=== PATIENT | male | born 1970 | race Hispanic/Latino ===

== ENCOUNTER 2024-09-26 17:03 | Emergency (ER) | payer SELFPAY ==
[2024-09-26] MEDS ORDERED: LORazepam 2 MG/ML SYR.(CARPUJECT) ONE (17:23)
[2024-09-26 17:35] LABS: #Basophils 0.03 10x3/uL (0.0-0.2); %Basophils 0.4 % (0.0-1.0); %Eosinophils 0.9 % (0.0-10.0); %Lymphocytes 21.1 % (21.0-51.0); %Monocytes 8.4 % (0.0-10.0); Hemoglobin 12.8 g/dL (14.0-18.0); Mean Corpuscular HGB CONC 34.6 g/dL (32.0-36.0); Mean Corpuscular Hemoglobin 28.8 pg (27.0-31.0); Mean Corpuscular Volume 83.1 fL (78.0-98.0); Mean Platelet Volume 9.8 fL (7.4-10.4); Platelet Count 256 10x3/uL (130-400); RBC Distribution Width 14.2 % (11.5-14.5); Red Blood Cell (RBC) Count 4.45 mill/uL (4.70-6.10)
[2024-09-26 17:54] LABS: ALT (SGPT) 51 U/L (8-55); AST (SGOT) 60 U/L (5-34); Acetaminophen Less than 10 mcg/mL (Less than 10); Albumin 4.3 g/dL (3.5-5.0); Alcohol Less than 10.0 mg/dL (Less than 10); Alkaline Phosphatase 125 U/L (40-110); Anion Gap 13 mmol/L (10-20); BUN (Urea Nitrogen) 22 mg/dL (8.4-25.7); Bilirubin, Total 0.6 mg/dL (0.2-1.2); Calc. Creatinine Clearance 0 mL/min (70-130); Calcium 9.3 mg/dL (7.8-10.44); Carbon Dioxide 23 mmol/L (22-29); Chloride 105 mmol/L (98-107); Estimated GFR 83; Globulin 3.7 g/dL (2.4-3.5); Glucose 102 mg/dL (70-105); Potassium 3.3 mmol/L (3.5-5.1); Salicylate Less than 8.0 mg/dL (Less than 8.0); Sodium 138 mmol/L (136-145)
== END 2024-09-27 10:07 | disposition home or self-care (01) ==
LOC: ERS 17:03
DX: F15.129 Other stimulant abuse with intoxication, unspecified (principal); Z55.6 Problems related to health literacy
CPT/HCPCS: 80053; 80307; 85025; 96372; 99284; J2060

== ENCOUNTER 2024-10-11 01:18 | Emergency (ER) | payer OTHER | END 2024-10-11 02:16 | disposition left against medical advice (07) | LOC: ERS 01:18 | DX: Z13.30 Encounter for screening examination for mental health and behavioral disorders, unspecified (principal); F17.290 Nicotine dependence, other tobacco product, uncomplicated; Z55.6 Problems related to health literacy | CPT/HCPCS: 99284 ==